=== PATIENT | female | born 1970 | race American Indian/Alaskan Native ===

== ENCOUNTER 2017-03-21 04:57 | Day surgery (SDC) | payer MEDICAID, OTHER ==
[2017-03-21] MEDS ORDERED: Midazolam 1 MG/ML 2 ML SDV IV ONE ×2 (04:58→06:31)
[2017-03-21] MEDS ORDERED: fentaNYL 100 MCG/2 ML SDV IV ONE ×2 (04:58→06:30)
[2017-03-21] MEDS ORDERED: Dextrose 5%-0.45% NaCl 1,000 ML IV SCH (06:00)
[2017-03-21] MEDS ORDERED: Sodium Chloride 0.9% 10 ML Syringe FLUSH PRN (06:00)
[2017-03-21] MEDS ORDERED: fentaNYL 100 MCG/2 ML SDV ONE (06:16)
[2017-03-21] MEDS ORDERED: Midazolam 1 MG/ML 2 ML SDV ONE (06:16)
[2017-03-21 10:24] VITALS: BP 102/54
--- NOTE | 2017-03-21 10:40 | OR ---
DATE: 03/21/2017 PROCEDURES: Esophagogastroduodenoscopy and multiple pinch biopsies. INSTRUMENT USED: GIF-H180 Olympus video panendoscope. PREMEDICATIONS: No oral topical anesthesia used. Fentanyl 100 mcg intravenous, Versed 2 mg intravenous. The procedure was done under pulse oximetry, BP recording, and paunch trimmer. INDICATION: The patient with previous gastric bypass surgery and recently detected iron-deficiency anemia. DESCRIPTION OF PROCEDURE: Esophagogastroduodenoscopy is performed for detection of any active erosive lesions, malignancy also under consideration. Small bowel biopsies to be obtained for celiac disease if indicated. H. pylori status to be determined, endoscopic hemostasis therapy if needed. The scope was passed with ease. Adequate visualization of the esophagus was made from proximal to distal areas. No upper esophageal lesions identified. No distal esophageal stricture. No uphill or downhill esophageal varices. No Arcelia-Ruffin tear. No evidence of erosive esophagitis by [place] criteria. No esophageal polyp or tumor mass identified. Z-line was seen at around 40 cm distal to the oral verge, configuration consistent with grade 1 by Zapp classification. No proximal gastric varices noted. Gastric fundus examination by retroflexion showed no polypoid lesions. No gastric ulcer, malignant mass, or vascular ectasia identified. Visualized loops of the small bowel were unremarkable. Multiple pinch biopsies, four in number, were taken from the duodenal mucosa and sent for any histopathologic evidence of celiac disease. Multiple pinch biopsies were also taken from the distal and proximal gastric mucosa and sent for PyloriTek test for H. pylori and histopathology. No bleeding was noted from any of the visualized areas at the completion of examination. Photographs were taken of the surgical site, gastric fundus, as well as distal esophagus. IMPRESSION: Status post gastric bypass surgery. The patient tolerated the procedure well. [facility] /[id number]
== END 2017-03-21 08:47 | disposition home or self-care (01) ==
LOC: DL.ENDO 04:57
PROVIDERS: ATTEND Internal Medicine Gastroenterology
DX: K31.89 Other diseases of stomach and duodenum (principal); D50.9 Iron deficiency anemia, unspecified; E53.8 Deficiency of other specified B group vitamins; K21.9 Gastro-esophageal reflux disease without esophagitis; F41.1 Generalized anxiety disorder; F32.9 Major depressive disorder, single episode, unspecified; Z88.1 Allergy status to other antibiotic agents; Z98.84 Bariatric surgery status; Z90.49 Acquired absence of other specified parts of digestive tract
CPT/HCPCS: 43239; 87077; J2250; J3010; J7042